=== PATIENT | female | born 1995 | race Hispanic/Latino ===

== ENCOUNTER 2016-10-25 12:56 | Inpatient (IN) | payer MEDICAID ==
[~2016-10-25] VITALS: Ht 152.4 cm; Wt 89.4 kg
[2016-10-25] MEDS ORDERED: Lactated Ringer's 1,000 ML IV PRN (14:09)
[2016-10-25] MEDS ORDERED: diphenhydrAMINE 50 mg Capsule PO PRN (14:10)
[2016-10-25] MEDS ORDERED: Oxytocin 10 Unit/mL Inj IM PRN (14:10)
[2016-10-25] MEDS ORDERED: Oxytocin 30 Units/500 mL LR 30 UNITS in IV Premix 1 EACH IV PRN (14:10)
[2016-10-25] MEDS ORDERED: Penicillin G K Inj 5,000,000 UNITS in Dextrose 5% Minibag Plus 100 ML IV ONE (14:10)
[2016-10-25] MEDS ORDERED: Carboprost 250 mCg/mL Inj IM PRN (14:10)
[2016-10-25] MEDS ORDERED: Misoprostol 25 mCg/0.25 Tablet VAGINAL SCH (14:10)
[2016-10-25] MEDS ORDERED: Hemorrhage Kit, Post Partum XX ONE (14:10)
[2016-10-25] MEDS ORDERED: Methylergonovine 0.2 mg/mL Inj IM PRN (14:10)
[2016-10-25] MEDS ORDERED: Sodium Chloride LOK Flush 10 mL Syringe IVFLUSH PRN (14:10)
[2016-10-25 14:34] LABS: Mean Corpuscular Hemoglobin 19.2 pg (27.0-35.0); Mean Corpuscular Volume 65.8 fL (81-100)
[2016-10-25] MEDS ORDERED: METF500T4 PO (19:45)
[2016-10-25] MEDS ORDERED: FERR-83 PO (19:46)
[2016-10-25] MEDS ORDERED: DOCO200C5 PO (19:46)
[2016-10-25] MEDS: Penicillin G K Inj 3,000,000 UNITS in IV Premix 1 EACH IV SCH (20:33)
[2016-10-25] MEDS ORDERED: fentaNYL 2 mCg/mL-Bupivicaine 0.125% 100 mL Premix EPIDURAL ONE (23:03)
[2016-10-25] MEDS ORDERED: Lactated Ringer's 1,000 ML IV SCH (23:06)
[2016-10-25] MEDS ORDERED: Lactated Ringer's 500 ML IV ONE (23:06)
--- NOTE | 2016-10-25 23:08 | PCM.HPANE ---
Patient Data Surgeon Admitting Provider:Nishi Clark MD Attending Provider:Nishi Clark MD Primary Care Physician:Russ Love MD Other Provider: Reason for Visit Term Labor TERM LABOR Ht/WT & BMI Body Mass Index Allergies Coded Allergies: No Known Allergies (Unverified , 01/13/16) Diabetes History Hx Diabetes?: Yes Glycemic Control: Oral Medication Medications Hypertension Medication: No Home Meds Incl Beta Dm: No Reported Medications Ferrous Sulfate 325 Mg [id number] Mg PO DAILY 30 Days Ref 0 10/25/16 Docosahexanoic Acid ( Dha)200 Mg [id number] Mg PO 10/25/16 Metformin 500 Mg Tablet1,000 Mg PO BID Ref 0 10/25/16 History Hx of Heart Problems?: No Hx of Respiratory Problem?: No Hx Neurologic Problems?: No Hx of GI Problems?: Yes Gastrointestinal History: Positive for:: Heartburn Female Hx: Positive for:: Currently Smoking Status: Never Smoker Have You Smoked inLast 12 mo: No Stop/Bang Treated for Sleep Apnea?: No Do You Have a CPAP Machine?: No KETTY Risk Assessment: Low Risk, <3 Yes Risk Assessment Category Category 1A: Patient has history of documented sleep apnea, and HAS NOT received any narcotic, sedative or anesthesia administration during this stay. Category 1B: Patient has history of documented sleep apnea, and HAS received any narcotic , sedative or anesthesia administration during this stay Category 2: Patient has SUSPECTED Obstructive Sleep Apnea, and HAS received any narcotic , sedative or anesthesia administration during this stay. Category 3: Patient has SUSPECTED Obstructive Sleep Apnea and HAS NOT received narcotic, sedative or anesthesia administration during this stay. Category 4: Outpatient in Procedural Areas with known sleep apnea or who screen positive for High Risk via the STOP/BANG questionnaire. Exam Exam General Appearance: Oriented X3 HEENT/AIRWAY: MP 2 Lungs: Normal Air Movement Heart: Regular Rate/Rhythm Meds/Labs/Diagnostics Admission Meds Current Medications Penicillin G Potassium [id number] units/Dextrose/ Water 100 ml @ 240 mls/hr ONCE ONCE IV Last administered on 10/25/16 15:43; Start 10/25/16 at 14:10; Stop at 14:34; Status DC Penicillin G Potassium/ Dextrose/Premix (Pfizerpen Inj/ IV Premix) 50 ml @ 100 mls/hr Q4 IV Last administered on 10/25/16 20:33; Start 10/25/16 at 20:30 Dinoprostone (Cervidil Vaginal Insert) 10 mg ONCE ONCE VAGINAL Last administered on 10/25/16 21:44; Start 10/25/16 at 14:10; Stop 10/25/16 at 14:17; Status DC Misoprostol (Cytotec) 25 mcg Q4H VAGINAL Last administered on 10/25/16 16:07; Start 10/25/16 at 14:10; Stop 10/25/16 at 18:11; Status DC Labs Test 10/25/16 14:25 White Blood Count 7.2th/mm3 (3.8-10.1) Red Blood Count 5.00mil/mm3 (3.90-5.20) Hemoglobin 9.6g/dL (12.0-15.6) Hematocrit 32.9% (35.0-46.0) Mean Corpuscular Volume 65.8fL (81-100) Mean Corpuscular Hemoglobin 19.2pg (27.0-35.0) Mean Corpuscular Hemoglobin Concent 29.2% (32.0-37.0) Red Cell Distribution Width 18.8% (12.3-15.4) Platelet Count 244bil/L (150-400) Plan Impression Patient chart reviewed, patient interviewed and anesthestic plan with risks, benefits, and alternatives discussed, and informed consent obtained. ASA Physical Status: ASA2 Mod Systemic Disease Anesthetic Plan: Epidural Bene/Risks/Altern/Consents: Yes HP Complete Prior to Induction: Yes Evelio Hyman MD Oct 25, 2016 23:08
[2016-10-25] MEDS ORDERED: Atropine 1 mg/10 mL (Code) Syringe IVPUSH PRN (23:10)
[2016-10-25] MEDS ORDERED: EPHEDrine Sulfate 50 mg/mL Inj IVPUSH PRN (23:10)
[2016-10-25] MEDS ORDERED: Ondansetron 2 mg/mL 2 mL Inj IVPUSH PRN (23:10)
[2016-10-25] MEDS ORDERED: fentaNYL 2 mCg/mL-Bupiv 0.125% 100 ML EPIDURAL SCH (23:10)
[2016-10-26 00:28] LABS: Mean Corpuscular Hemoglobin 19.3 pg (27.0-35.0); Mean Corpuscular Volume 65.7 fL (81-100)
[2016-10-26] MEDS: Penicillin G K Inj 3,000,000 UNITS in IV Premix 1 EACH IV SCH ×3 (01:02→08:57)
--- NOTE | 2016-10-26 05:52 | PROG NOTE ---
[address] [address] PROGRESS NOTE PATIENT: NABEEL HOANG : 1995 MR#: [id number] ADMIT: 10/25/2016 JOB ID: [id number] DATE: 10/26/2016 SUBJECTIVE: The patient was admitted yesterday for a spontaneous rupture of membranes and induction of labor. OBJECTIVE: Upon exam, this morning, patient is comfortable with her epidural. Vital signs are 124/82 for blood pressure. Respirations are 16. Pulse is 75, temperature 36.8 degrees centigrade. The heart tracing is showing baseline of 130 beats per minute, positive accelerations, no decelerations, moderate variability, category 1 heart tracing. Cervical exam is 6 cm dilated, cervix 90% effaced, -2 station, vertex presentation. Clear fluid. Intrauterine pressure catheter inserted to monitor adequacy of uterine contractions. The patient is currently at 12 renaldo international units of Pitocin per minute. ASSESSMENT AND PLAN: The patient is a 21-year-old 2, para 0-0-1-0 at 38 weeks and 6 days gestational age, admitted with spontaneous rupture of membranes. 1. Gestational diabetes mellitus A2, off metformin. check fasting blood glucose in the morning. 2. Induction of labor. Continue with Pitocin. Patient is progressing well. 3. GBS bacteriuria. Continue with penicillin for prophylaxis. 4. Epidural is adequate for pain control. 5. Category 1 heart tracing. We will consider internal monitoring as needed. All the above discussed in details with the patient who agreed to the plan. CAMILLE
--- NOTE | 2016-10-26 07:36 | HP ---
[address] [address] HISTORY AND PHYSICAL PATIENT: NABEEL HOANG : 1995 MR#: [id number] ADMIT: 10/25/2016 JOB ID: [id number] ADMISSION DIAGNOSIS: Spontaneous rupture of membranes at term. HISTORY OF PRESENT ILLNESS: The patient is a 21-year-old 2, para 0-0-1-0 at 38 weeks and 5 days gestational age by seven week ultrasound. Complaint of leakage of fluid that started 7 in the morning. Today when she came into triage, she was confirmed to have spontaneous rupture of membranes with ROM plus test. Bedside ultrasound in triage confirmed vertex presentation. The patient had her complicated with the followin. Gestational diabetes A2 on metformin and the plan was to deliver at 39 weeks. 2. Bud cisterna magna. brain MRI was within normal limits. 3. Suspected macrosomia with abdominal circumference more than 99th percentile. Last ultrasound on October 09, 2016 showed estimated weight of 3686 g, 98th percentile. 4. Anemia. The patient is on iron supplementation. 5. Gastroesophageal reflux disease improved with Tums. 6. GBS bacteriuria. 7. Teen . 8. Recent SAB at 6 weeks with no suction D and C. The patient denied any bleeding, reports movements, has some infrequent contractions. PAST OBSTETRICAL HISTORY: In December 2015 the patient had a 6 weeks that ended with spontaneous with no suction D and C and the current . PAST GYNECOLOGIC HISTORY: Denied any history of sexually transmitted diseases. Never had a Pap smear yet. She is less than 21 years old. PAST MEDICAL HISTORY: 1. Gastroesophageal reflux disease. 2. Anemia. 3. Gestational diabetes. PAST SURGICAL HISTORY: Insignificant. ALLERGIES: No known drug allergies. MEDICATIONS: 1. Metformin 500 mg b.i.d. 2. Ferrous sulfate 325 mg. 3. vitamins. 4. Promethazine as needed for nausea and vomiting. SOCIAL HISTORY: Denied any alcohol consumption. Denied any drugs of abuse. Denied any cigarette smoking. FAMILY HISTORY: Significant for diabetes. The patient's mother has diabetes. LABORATORIES: O-positive, antibody negative, rubella immune, serology nonreactive, hepatitis B surface antigen negative, HIV nonreactive. Urine culture showed GBS bacteriuria. GC, Chlamydia cultures negative. PHYSICAL EXAMINATION: The patient is alert, oriented x3. Vital signs are 129/79 for blood pressure. Respirations are 16. Pulse is 100. Temperature 37.1 degrees centigrade. Heart is regular rate and rhythm. Positive S1, S2. Lungs clear to auscultation bilaterally. Abdomen: Gravid uterus, nontender. Positive bowel sounds. Lower extremities: No calf tenderness appreciated bilaterally. Cervical examination: 1 cm dilated cervix, 60% effaced, -4 station, mid position, medium consistency. Pimentel score of 5. Bedside ultrasound confirmed vertex presentation. heart tracing is showing a baseline of 140 beats per minute, positive accelerations, no decelerations, moderate variability, reactive tracing. ASSESSMENT AND PLAN: The patient is a 21-year-old 2, para 0-0-1-0 at 38 weeks and 5 days gestational age by seven week ultrasound, who is presenting with confirmed spontaneous rupture of membranes. 1. Start induction of labor with cervical ripening to be followed by Pitocin. 2. GBS cultures positive. Penicillin started. 3. Reactive heart tracing. Will continue with external monitoring and consider internal monitoring on a p.r.n. basis. 4. Discussed intrapartum analgesia with patient. She requested epidural anesthesia. 5. Hold metformin. All the above issues discussed with the patient who agreed with the plan. CAMILLE
[2016-10-26] MEDS ORDERED: Lactated Ringer's 1,000 ML IV SCH (11:52)
[2016-10-26] MEDS ORDERED: oxyCODONE-Acetamin 5-325 mg Tablet PO PRN (11:55)
[2016-10-26] MEDS ORDERED: Witch Hazel-Glycerin Pads TOPICAL PRN (11:55)
[2016-10-26] MEDS ORDERED: Carboprost 250 mCg/mL Inj IM PRN (11:55)
[2016-10-26] MEDS ORDERED: Oxytocin 30 Units/500 mL LR 30 UNITS in IV Premix 1 EACH IV PRN (11:55)
[2016-10-26] MEDS ORDERED: Oxytocin 10 Unit/mL Inj IM PRN (11:55)
[2016-10-26] MEDS ORDERED: Benzocaine (Dermoplast) 20% 60 Gm Spray TOPICAL PRN (11:55)
[2016-10-26] MEDS ORDERED: Methylergonovine 0.2 mg/mL Inj IM PRN (11:55)
[2016-10-26] MEDS ORDERED: LANOlin HPA 7 Gm Ointment TOPICAL PRN (11:55)
[2016-10-26] MEDS ORDERED: Hemorrhage Kit, Post Partum XX ONE (11:55)
--- NOTE | 2016-10-26 13:08 | OP ---
[address] [address] OPERATIVE REPORT PATIENT: NABEEL HOANG : 1995 MR#: [id number] ADMIT: 10/25/2016 JOB ID: [id number] DATE OF SURGERY: 10/26/2016 PREOPERATIVE DIAGNOSIS(ES): 1. Intrauterine at 38 weeks and 6 days. 2. Premature rupture of membranes. 3. Induction of labor. 4. Gestational diabetes on metformin, well controlled. 5. Anemia. 6. Group B strep positive. POSTOPERATIVE DIAGNOSIS(ES): 1. Intrauterine at 38 weeks and 6 days. 2. Premature rupture of membranes. 3. Induction of labor. 4. Gestational diabetes on metformin, well controlled. 5. Anemia. 6. Group B strep positive. 7. Status post spontaneous vaginal delivery. PROCEDURE: 1. Spontaneous vaginal delivery. 2. First degree laceration repair. SURGEON: Delano Brumfield MD ESTIMATED BLOOD LOSS: 400 mL. FINDINGS: Female infant delivered in cephalic presentation with Apgars of 6 at 1 minute and 8 at 5 minutes. Weight 3725 g. Placenta with three-vessel cord. DESCRIPTION OF PROCEDURE: This is a 21-year-old 2, now para 1-0-1-1, presented at 38 weeks and 6 days with premature rupture of membranes since October 25, 2016 at 7 a.m. Induction of labor was started by cervical ripening with Cervidil. The cervix was closed, 20% and -3 at presentation. Then Pitocin was started when the cervix was 2 and 70% and -3 at 50 minutes after midnight, October 26, 2016. She became active labor at 4:15 where cervix was 6 cm, 90%, -2. Progressed to completely dilated at 8:06, at that time, trials of pushing with no effective power so the patient was labored down until an urge to push and she started pushing around 11 a.m. to deliver on October 26, 2016 at 11:26 via spontaneous vaginal delivery over an intact perineum under epidural anesthesia. Delivered a female infant in cephalic presentation in occiput anterior position. Head delivered and two nuchal cords were released over the occiput without difficulty followed by the delivery of the shoulders without difficulty. The was placed on the maternal abdomen. Delayed cord clamp was performed after 1 minute. Apgars as noted above. Cord segment was collected for gases, pH 7.401, pCO2 35, pO2 38, bicarbonate 21, base -2.4. and pH of 7.409, pCO2 33, pO2 41.7, bicarbonate 20.4, base -2.6. Cord blood was obtained for typing. Placenta was delivered spontaneously intact with three-vessel cord. Fundal massage was performed. Uterus was atonic. Oxytocin bolus was started. 400 mcg of misoprostol was placed rectally. Continued to massage the uterus. The uterus start to firm and the bleeding slowed down. Total estimated blood loss 400 mL. The perineum was examined. A first-degree laceration was repaired with 3-0 Vicryl in a running fashion. A small hymenal laceration was repaired with one [id number] on the right side of the hymen. All instrument, needle and sponge counts were correct x2. Bleeding was minimal. At this point, the patient and in the delivery room recovering. IDelano MD was present and scrubbed for the entire procedure. will be admitted under the hospitalist crust sorter secondary to aurora cisterna magna on ultrasound with normal brain in MRI. CAMILLE
[2016-10-26] MEDS: Ascorbic Acid 500 mg Tablet PO SCH (20:06)
[2016-10-27 06:31] LABS: Mean Corpuscular Hemoglobin 19.6 pg (27.0-35.0); Mean Corpuscular Volume 66.5 fL (81-100)
[2016-10-27] MEDS: Ascorbic Acid 500 mg Tablet PO SCH (07:50)
--- NOTE | 2016-10-27 09:03 | PCM.PNOBPP ---
Subjective Date of Service Oct 27, 2016 Post : Spontaneous Vaginal Delivery Subjective 21-year-old G2 now P1011 presented to the [facility] with spontaneous rupture of membranes, after induction of labor patient delivered via normal spontaneous vaginal delivery on October 26 at 11:27. She is doing well , baby is breast-feeding well, she is urinating, passing gas, and even had a small bowel movement. She has a good appetite and is walking on her own. patient reports no headache no vision changes no epigastric pain and no fever or chills. She is breast-feeding the infant well. She is interested in the pill for control. Patient is GBS positive she was treated with 4 doses of penicillin. She has no concerns or questions this morning. Lochia: Normal Pain Management: PO pain meds Gastrointestinal: Good Appetite, No N/V, Passing Flatus, Passing Stool Postop Activity: Ambulating Independently Labs Blood type O positive, antibody screen negative, GBS positive, rubella immune, RPR nonreactive, HBsAg negative, HIV nonreactive, GC/CT negative Group B Strep Results: Positive Rubella: Immune Blood Type: O RH Type: Positive Labs Laboratory Tests 10/25/16 23:55: Hematology Comments 10/27/16 05:45: White Blood Count 13.0, Red Blood Count 4.33, Hemoglobin 8.5, Hematocrit 28.8, Mean Corpuscular Volume 66.5, Mean Corpuscular Hemoglobin 19.6, Mean Corpuscular Hemoglobin Concent 29.5, Red Cell Distribution Width 18.8, Platelet Count 237 Exam Vital Signs Vital Signs BP 138/79, HR 63, R 16, temp 36.7 Vital Signs: VS reviewed, stable Exam Abdomen: Fundus firm, Abdomen soft, Abdomen appropriately tender : Voiding without difficulty Extremities: Edema 1+ Lungs: Clear to Auscultation, Normal Air Movement Heart: Regular Rate/Rhythm, No Murmurs/Rubs/Gallops General: Alert, Oriented X3 OB Post Assessment/Plan Assessment 21-year-old G2 now P1011 presented to the [facility] with spontaneous rupture of membranes, after induction of labor patient delivered via normal spontaneous vaginal delivery on October 26 at 11:27. Since that time she is doing well. She is on iron and vitamin C supplementation for anemia, she was adequately treated for GBS, she had gestational hypertension without features of preeclampsia. She also has gestational diabetes mellitus and takes metformin twice a day. Overall patient is stable and meeting goals. Problems: (1) (spontaneous vaginal delivery) Plan: Routine care Status: Acute ICD Code: O80 (2) Positive GBS test Plan: Adequately treated with intrapartum penicillin Status: Acute ICD Code: B95.1 (3) GDM (gestational diabetes mellitus) Qualifiers: Gestational diabetes mellitus control: unspecified Trimester: unspecified trimester Qualified Code: O24.419 - Gestational diabetes mellitus in , unspecified control Plan: Metformin 500 mg twice a day Status: Acute ICD Code: O24.419 (4) Gestational hypertension Plan: Monitor for elevated blood pressures Status: Acute ICD Code: O13.9 (5) Anemia affecting Plan: Daily iron and vitamin C, Continue vitamin. Status: Acute ICD Code: O99.019 Pain Management: Ibuprofen and Percocet Pain Evaluation: Adequate Pain Control Post plan: Continue routine post care, Anticipate discharge home today Attending Statement The patient was seen and examined together with Dr. Cheema on 10/27/2016 and I agree with the history, exam and plan as outlined in the note above. / MD ANDREIA Cope ERIKA R DO Oct 27, 2016 09:02 Freedom Caban MD Nov 15, 2016 17:06
--- NOTE | 2016-10-27 13:37 | PCM.DIOB ---
Obstetrical Disch Instruction Date of Service: Oct 27, 2016 Dates of Hospitalization Date of Hospital Admission Oct 25, 2016 at 13:58 Providers Admitting Physician: Nishi Clark MD Primary Care Physician: Russ Love MD Attending Physician: Nishi Clark MD Discharge Diagnosis Discharge Diagnosis Normal Spontaneous Vaginal Delivery Post Operative diagnosis 1. Intrauterine at 38 weeks and 6 days. 2. Premature rupture of membranes. 3. Induction of labor. 4. Gestational diabetes on metformin, well controlled. 5. Anemia. 6. Group B strep positive. 7. Status post spontaneous vaginal delivery. Problems: (1) (spontaneous vaginal delivery) Plan: Routine care Status: Acute ICD Code: O80 (2) Positive GBS test Plan: Adequately treated with intrapartum penicillin Status: Acute ICD Code: B95.1 (3) GDM (gestational diabetes mellitus) Qualifiers: Gestational diabetes mellitus control: unspecified Trimester: unspecified trimester Qualified Code: O24.419 - Gestational diabetes mellitus in , unspecified control Plan: Metformin 500 mg twice a day Status: Acute ICD Code: O24.419 (4) Gestational hypertension Plan: Monitor for elevated blood pressures , follow up in 2 weeks for blood pressure and check Status: Acute ICD Code: O13.9 (5) Anemia affecting Plan: Daily iron and vitamin C, Continue vitamin. Status: Acute ICD Code: O99.019 Diet Discharge Diet: No restrictions Activity Discharge Activity-General: Pelvic Rest for 6 weeks, Balance rest and activity Dressing and Incisional Care Hygiene: May shower Additional Instructions Discharge Instructions Continue your vitamin. Please take the iron and vitamin c together for your anemia. Do not take more pain medication (Percocet) than is necessary -- less is better. Percocet pills have Tylenol (acetaminophen) in them at 325mg per pill. Do not take Tylenol in addition to your pain medication but should take one or the other. Both iron and Percocet can give you constipation so you have also been given a prescription for docusate to keep you regular. Be sure to follow up in 2 weeks and then again in 6 weeks at [facility]. Pelvic rest for 6 weeks (nothing per vagina including intercourse, tampons) If you have a fever greater than 100.4, please call [facility]. There is always someone electronic transaction implementer to talk to. If you have an increase in bleeding, call [facility]. If you have a lot of bleeding suddenly, especially if you have symptoms of dizziness & weakness with it, get emergency help. If you start experiencing extreme depression, especially if you feel that you are a danger to yourself or your family, seek emergency help. You have been through a lot -- BE SURE TO TAKE CARE OF YOURSELF. Follow Up Plan Follow-up Provider (F9): Delano Brumfield MD Follow-up appointment: Weeks (2, 6) Call your provider for: Fever or Chills, Shortness of breath, Heavy vaginal bleeding, Excessive constipation, Vaginal discomfort, Red painful breasts DEBBIE BOSWELL DO Oct 27, 2016 13:37
[2016-10-27] MEDS ORDERED: IBUP-1827 PO (13:41)
[2016-10-27] MEDS ORDERED: DOCU-41 PO (13:41)
[2016-10-27] MEDS ORDERED: OXYC1TAB24 PO (13:41)
[2016-10-27] MEDS ORDERED: Ascorbic Acid PO (13:41)
[2016-10-27 14:00] VITALS: BP 126/77; PULSE 82; RESP 18
--- NOTE | 2016-10-29 16:49 | PCM.DC.OB ---
Obstetrical Discharge Summary Date of Service Oct 27, 2016 Date of hospital admission Oct 25, 2016 at 13:58 Date of Discharge: Oct 27, 2016 Providers Admitting Physician: Nishi Clark MD Primary Care Physician: Russ Love MD Attending Physician: Nishi Clark MD Diagnosis at Time of Discharge Normal spontaneous vaginal delivery Problems: (1) (spontaneous vaginal delivery) Plan: Routine care Status: Acute ICD Code: O80 (2) Positive GBS test Plan: Adequately treated with intrapartum penicillin Status: Acute ICD Code: B95.1 (3) GDM (gestational diabetes mellitus) Qualifiers: Gestational diabetes mellitus control: unspecified Trimester: unspecified trimester Qualified Code: O24.419 - Gestational diabetes mellitus in , unspecified control Plan: Metformin 500 mg twice a day can be discontinued follow-up at your 2 week visit Status: Acute ICD Code: O24.419 (4) Gestational hypertension Plan: Follow up in 2 weeks for blood pressure and check Status: Acute ICD Code: O13.9 (5) Anemia affecting Plan: Daily iron and vitamin C, Continue vitamin. Status: Acute ICD Code: O99.019 Invasive procedures Normal spontaneous vaginal delivery Date of Procedure: Oct 26, 2016 Brief History and Physical: At time of admission HISTORY OF PRESENT ILLNESS: The patient is a 21-year-old 2, para 0-0-1-0 at 38 weeks and 5 days gestational age by seven week ultrasound. Complaint of leakage of fluid that started 7 in the morning. Today when she came into triage, she was confirmed to have spontaneous rupture of membranes with a ROM+ test. Bedside ultrasound in triage confirmed vertex presentation. The patient had her complicated with the followin. Gestational diabetes A2 on metformin and the plan was to deliver at 39 weeks. 2. Bud cisterna magna. brain MRI was within normal limits. 3. Suspected macrosomia with abdominal circumference more than 99th percentile. Last ultrasound on October 09, 2016 showed estimated weight of 3686 g, 98th percentile. 4. Anemia. The patient is on iron supplementation. 5. Gastroesophageal reflux disease improved with Tums. 6. GBS bacteriuria. 7. Teen . 8. Recent SAB at 6 weeks with no suction D and C. The patient denied any bleeding, reports movements, has some infrequent contractions. PAST OBSTETRICAL HISTORY: In December 2015 the patient had a 6 weeks that ended with spontaneous with no suction D and C and the current . PAST GYNECOLOGIC HISTORY: Denied any history of sexually transmitted diseases. Never had a Pap smear yet. She is less than 21 years old. PAST MEDICAL HISTORY: 1. Gastroesophageal reflux disease. 2. Anemia. 3. Gestational diabetes. PAST SURGICAL HISTORY: Insignificant. ALLERGIES: No known drug allergies. MEDICATIONS: 1. Metformin 500 mg b.i.d. 2. Ferrous sulfate 325 mg. 3. vitamins. 4. Promethazine as needed for nausea and vomiting. SOCIAL HISTORY: Denied any alcohol consumption. Denied any drugs of abuse. Denied any cigarette smoking. FAMILY HISTORY: Significant for diabetes. The patient's mother has diabetes. LABORATORIES: O-positive, antibody negative, rubella immune, serology nonreactive, hepatitis B surface antigen negative, HIV nonreactive. Urine culture showed GBS bacteriuria. GC, Chlamydia cultures negative. Nishi Clark MD 10/25/16 1416 Exam on day of discharge: vital signs stable and normal, well-nourished well- appearing, heart regular rate and rhythm no murmurs, lungs clear to auscultation bilaterally with good air movement. Abdomen soft, uterine fundus firm. +1 edema in bilateral lower extremities. Appropriate mood and affect. Hospital Course: 21-year-old G2 now P1011 presented to the [facility] with spontaneous rupture of membranes, after induction of labor patient delivered via normal spontaneous vaginal delivery on October 26 at 11:27. Patient needing goals mother and discharged to home in stable condition. ([Ascorbic Acid]) 500 MG TABLET 500 MG PO DAILY Take with Iron Prescribed by: DEBBIE BOSWELL DO Docosahexanoic Acid ( Dha) 200 Mg Capsule 200 MG PO (Reported) Last Taken: Unknown Dose on 10/25/16 0800 Docusate Sodium (Colace) 100 Mg Capsule 100 MG PO DAILY PRN PRN For Constipation Prescribed by: DEBBIE BOSWELL DO Ferrous Sulfate (Ferrous Sulfate) 325 Mg Tablet 325 MG PO DAILY (Reported) Last Taken: Unknown Dose on 10/25/16 0800 Ibuprofen (Ibuprofen) 600 Mg Tablet 600 MG PO Q6H PRN PRN For Mild Pain Prescribed by: DEBBIE BOSWELL DO oxyCODONE-Acetaminophen 5-325 mg (oxyCODONE-Acetaminophen 5-325 mg) 1 Each Tablet 1-2 TAB PO Q4H PRN PRN For Pain Prescribed by: DEBBIE BOSWELL DO Disposition Discharge home Follow-up plan Delano Brumfield MD in 2 weeks and 6 weeks Discharge Diet: No restrictions Discharge Activity-General: Pelvic Rest for 6 weeks, Balance rest and activity Patient instructions Continue your vitamin. Please take the iron and vitamin c together for your anemia. Do not take more pain medication (Percocet) than is necessary -- less is better. Percocet pills have Tylenol (acetaminophen) in them at 325mg per pill. Do not take Tylenol in addition to your pain medication but should take one or the other. Both iron and Percocet can give you constipation so you have also been given a prescription for docusate to keep you regular. Be sure to follow up in 2 weeks and then again in 6 weeks at [facility]. Pelvic rest for 6 weeks (nothing per vagina including intercourse, tampons) If you have a fever greater than 100.4, please call [facility]. There is always someone admissions specialist to talk to. If you have an increase in bleeding, call [facility]. If you have a lot of bleeding suddenly, especially if you have symptoms of dizziness & weakness with it, get emergency help. If you start experiencing extreme depression, especially if you feel that you are a danger to yourself or your family, seek emergency help. You have been through a lot -- BE SURE TO TAKE CARE OF YOURSELF. Attending Statement: The patient was seen and examined together with Dr. Boswell on 10/29/2016 and I agree with the history, exam and plan as outlined in the note above. / MD Deni Cope Erika R DO Oct 29, 2016 16:48 Freedom Caban MD Nov 15, 2016 09:47
== END 2016-10-27 15:09 | disposition home or self-care (01) | DRG 775 ==
LOC: FBCO 12:56 → FBC 13:58
PROVIDERS: ADMIT Obstetrics & Gynecology; ATTEND Obstetrics & Gynecology
PROC: 3E0P7GC Introduction of Other Therapeutic Substance into Female Reproductive, Via Natural or Artificial Opening (ICD-10-PCS; 2016-10-25)
PROC: 10E0XZZ Delivery of Products of Conception, External Approach (ICD-10-PCS; principal; 2016-10-26)
PROC: 0HQ9XZZ Repair Perineum Skin, External Approach (ICD-10-PCS; 2016-10-26)
DX: O42.92 Full-term premature rupture of membranes, unspecified as to length of time between rupture and onset of labor (principal); O13.4 Gestational [pregnancy-induced] hypertension without significant proteinuria, complicating childbirth; O70.0 First degree perineal laceration during delivery; O24.425 Gestational diabetes mellitus in childbirth, controlled by oral hypoglycemic drugs; O99.824 Streptococcus B carrier state complicating childbirth; O99.02 Anemia complicating childbirth; Z3A.38 38 weeks gestation of pregnancy; Z37.0 Single live birth